=== PATIENT | female | born 1975 | race Caucasian/White ===

== ENCOUNTER 2021-10-27 14:38 | Emergency (ER) | payer MEDICAID ==
[2021-10-27 14:47] VITALS: BP 148/72; PULSE 99
[2021-10-27] MEDS ORDERED: Morphine 2 MG/ML SYRINGE SUBCUT STA (15:01)
[2021-10-27] MEDS ORDERED: Take Home: Acetaminophen/HYDROcodone 325-5 MG, 2 Tab Pack PO ONE (15:25)
== END 2021-10-27 16:05 | disposition home or self-care (01) ==
LOC: CC.ED 14:38
DX: S20.211A Contusion of right front wall of thorax, initial encounter (principal); K21.9 Gastro-esophageal reflux disease without esophagitis; Z72.0 Tobacco use; Z79.899 Other long term (current) drug therapy; X50.9XXA Other and unspecified overexertion or strenuous movements or postures, initial encounter
CPT/HCPCS: 71101; 96372; 99283; A9270; J2270

== ENCOUNTER 2021-12-21 19:27 | Emergency (ER) | payer MEDICAID ==
[2021-12-21 19:45] VITALS: BP 146/91; PULSE 102
== END 2021-12-21 20:00 | disposition left against medical advice (07) ==
LOC: CC.ED 19:27
DX: T50.902A Poisoning by unspecified drugs, medicaments and biological substances, intentional self-harm, initial encounter (principal); K21.9 Gastro-esophageal reflux disease without esophagitis; Z79.899 Other long term (current) drug therapy
CPT/HCPCS: 99283; 99284

== ENCOUNTER → 2022-01-09 | Day surgery (SDC) | payer MEDICAID ==
[~2022-01-09] MED LIST: Flumazenil 0.1 MG/ML 10 ML MDV ONE; Ketamine 200 MG/20 ML MDV ONE; Lactated Ringers 1,000 ML IV SCH; Lidocaine 2% 20 ML MDV ONE; Midazolam 1 MG/ML 2 ML SDV ONE; Phenylephrine 1% 10 MG/ML SDV ONE; Propofol 200 MG/20 ML SDV ONE; fentaNYL 50 MCG/ML SDV ONE
[2022-01-09 12:11] VITALS: BP 108/61; PULSE 80
== END ==
LOC: CC.SDS 09:39
PROVIDERS: ATTEND Family Medicine
DX: D12.7 Benign neoplasm of rectosigmoid junction (principal); K31.89 Other diseases of stomach and duodenum; K29.90 Gastroduodenitis, unspecified, without bleeding; K25.9 Gastric ulcer, unspecified as acute or chronic, without hemorrhage or perforation; F17.210 Nicotine dependence, cigarettes, uncomplicated; F41.9 Anxiety disorder, unspecified; F32.A Depression, unspecified; K21.9 Gastro-esophageal reflux disease without esophagitis; E66.9 Obesity, unspecified; Z79.899 Other long term (current) drug therapy; Z98.890 Other specified postprocedural states; Z68.33 Body mass index [BMI] 33.0-33.9, adult
CPT/HCPCS: 00813; 87081; J2250; J2370; J2704; J3010; J7120